=== PATIENT | female | born 1990 | race Caucasian/White ===

== ENCOUNTER 2018-04-05 15:10 | Outpatient (REF) | payer BC, SELFPAY ==
--- NOTE | 2018-04-05 11:40 | PAPFT_PTH ---
PATIENT: Zhang Granado LOC: [facility] U#:[id number] AGE/SX: 27/F ROOM: RE04/05/[address]: Digna Bolivar RN : 1990 BED: DIS: 04/05/2018 SPEC #: [id number] RECD: 04/05/18 17:58 STATUS: TABATHA REKervin #: [id number] ERIBERTO: 04/05/18 11:[address]: Digna Bolivar DEPT: [facility] Cytology RECD BY: Selina England ENTERED: 04/05/18 17:58 SP TYPE: PAPFT OTHR DR: Georgette Kaufman Tissues: 1 - CX/ENDOCX FOR PAP SMEARS Procedures: PAP THIN PREP/UVM Screening Comments: [id number] (CHLAMYDIA/GC)
[2018-04-08 14:09] LABS: Chlamydia Result Negative; GC Result Negative; Specimen Description SEE COMMENTS
== END 2018-04-05 15:30 ==
LOC: LBN 15:10
PROVIDERS: PCP Internal Medicine; Visit Provider Advanced Practice Midwife
DX: Z12.4 Encounter for screening for malignant neoplasm of cervix (principal); Z11.51 Encounter for screening for human papillomavirus (HPV); Z11.3 Encounter for screening for infections with a predominantly sexual mode of transmission
CPT/HCPCS: 87491; 87591; 88142

== ENCOUNTER 2018-12-03 08:49 | Outpatient (CLI) | payer BC, SELFPAY ==
[2018-12-03 09:54] LABS: HCG Quant, Pregnancy 49 mIU/mL (1-3)
[2018-12-03 20:38] LABS: Estradiol 219 pg/ml; Progesterone 27.4 ng/ml
== END 2018-12-03 09:09 ==
PROVIDERS: PCP Internal Medicine; Visit Provider Obstetrics & Gynecology
DX: Z32.01 Encounter for pregnancy test, result positive (principal)
CPT/HCPCS: 36415; 82670; 84144; 84702

== ENCOUNTER 2018-12-05 08:11 | Outpatient (CLI) | payer BC, SELFPAY ==
[2018-12-05 08:58] LABS: HCG Quant, Pregnancy 70 mIU/mL (1-3)
[2018-12-05 17:34] LABS: Estradiol 223 pg/ml; Progesterone 23.8 ng/ml
== END 2018-12-05 08:31 ==
PROVIDERS: PCP Internal Medicine; Visit Provider Obstetrics & Gynecology
DX: Z32.01 Encounter for pregnancy test, result positive (principal)
CPT/HCPCS: 36415; 82670; 84144; 84702

== ENCOUNTER 2018-12-07 09:08 | Outpatient (CLI) | payer BC, SELFPAY ==
[2018-12-07 09:51] LABS: HCG Quant, Pregnancy 92 mIU/mL (1-3)
== END 2018-12-07 09:28 ==
PROVIDERS: PCP Internal Medicine; Visit Provider Obstetrics & Gynecology
DX: Z32.01 Encounter for pregnancy test, result positive (principal)
CPT/HCPCS: 36415; 84702

== ENCOUNTER 2018-12-09 07:04 | Outpatient (CLI) | payer BC, SELFPAY ==
[2018-12-09 07:59] LABS: HCG Quant, Pregnancy 117 mIU/mL (1-3)
== END 2018-12-09 07:24 ==
PROVIDERS: Obstetrics & Gynecology; PCP Internal Medicine; Visit Provider Obstetrics & Gynecology
DX: Z32.01 Encounter for pregnancy test, result positive (principal)
CPT/HCPCS: 36415; 84702

== ENCOUNTER 2018-12-11 07:05 | Outpatient (CLI) | payer BC, SELFPAY ==
[2018-12-11 07:50] LABS: HCG Quant, Pregnancy 127 mIU/mL (1-3)
== END 2018-12-11 07:25 ==
PROVIDERS: PCP Internal Medicine; Visit Provider Obstetrics & Gynecology
DX: Z32.01 Encounter for pregnancy test, result positive (principal)
CPT/HCPCS: 36415; 84702

== ENCOUNTER 2018-12-16 07:05 | Outpatient (CLI) | payer BC, SELFPAY ==
[2018-12-16 08:11] LABS: HCG Quant, Pregnancy 19 mIU/mL (1-3)
[2018-12-16 18:23] LABS: Estradiol 156 pg/ml; Progesterone 26.1 ng/ml
== END 2018-12-16 07:25 ==
PROVIDERS: PCP Internal Medicine; Visit Provider Obstetrics & Gynecology
DX: Z32.01 Encounter for pregnancy test, result positive (principal)
CPT/HCPCS: 36415; 82670; 84144; 84702

== ENCOUNTER 2018-12-23 07:11 | Outpatient (CLI) | payer BC, SELFPAY ==
[2018-12-23 07:56] LABS: HCG Quant, Pregnancy 7 mIU/mL (1-3)
== END 2018-12-23 07:31 ==
PROVIDERS: PCP Internal Medicine; Visit Provider Obstetrics & Gynecology
DX: Z32.01 Encounter for pregnancy test, result positive (principal)
CPT/HCPCS: 36415; 84702

== ENCOUNTER 2018-12-30 07:03 | Outpatient (CLI) | payer BC, SELFPAY ==
[2018-12-30 07:38] LABS: HCG Quant, Pregnancy 1 mIU/mL (1-3)
== END 2018-12-30 07:23 ==
PROVIDERS: PCP Internal Medicine; Visit Provider Obstetrics & Gynecology
DX: Z32.01 Encounter for pregnancy test, result positive (principal)
CPT/HCPCS: 36415; 84702

== ENCOUNTER 2019-03-27 08:20 | Outpatient (CLI) | payer BC, SELFPAY ==
[2019-03-27 09:16] LABS: HCG Quant, Pregnancy 6 mIU/mL (1-3)
[2019-03-27 19:59] LABS: Progesterone 22.5 ng/mL (See Table)
[2019-03-28 09:15] LABS: Estradiol 88 pg/mL (See Note)
== END 2019-03-27 08:40 ==
PROVIDERS: PCP Internal Medicine; Visit Provider Obstetrics & Gynecology
DX: Z32.00 Encounter for pregnancy test, result unknown (principal)
CPT/HCPCS: 36415; 82670; 84144; 84702

== ENCOUNTER 2019-03-29 09:11 | Outpatient (CLI) | payer BC, SELFPAY ==
[2019-03-29 09:53] LABS: HCG Quant, Pregnancy 2 mIU/mL (1-3)
[2019-03-30 18:14] LABS: Progesterone 16.3 ng/mL (See Table)
[2019-04-03 15:27] LABS: Estradiol 125 pg/mL (See Note)
== END 2019-03-29 09:31 ==
PROVIDERS: PCP Internal Medicine; Visit Provider Obstetrics & Gynecology
DX: Z32.00 Encounter for pregnancy test, result unknown (principal)
CPT/HCPCS: 36415; 82670; 84144; 84702

== ENCOUNTER 2021-10-20 01:30 | Outpatient (CLI) | payer BC, SELFPAY ==
[2021-10-20 16:03] LABS: Abs Immature Grans 0.05 10^3/uL (0.0-0.06); Absolute Basophil Count 0.03 10^3/uL (0.0-0.2); Absolute Eosinophil Count 0.13 10^3/uL (0.0-0.7); Absolute Lymphocyte Count 1.77 10^3/uL (1.2-3.4); Absolute Monocyte Count 0.56 10^3/uL (0.1-0.8); Absolute Neutrophil Count 6.62 10^3/uL (1.2-6.7); Basophils % 0.3; Eosinophils % 1.4; Glucose,1 Hr (Glucola) 110 mg/dL (80-140); HCT 35.3 % (36.0-46.0); HGB 12.5 g/dL (11.2-15.7); Immature Grans % 0.5; Lymphocytes % 19.3; MCH 31.6 pg (27.0-33.0); MCHC 35.4 % (32.0-36.0); MCV 89 fL (80-95); MPV 9.5 fL (8.0-11.0); Monocytes % 6.1; Neutrophils % 72.4; Platelet Count 254 10^3/uL (130-400); RBC 3.96 10^6/uL (3.93-5.22); RDW 11.8 % (11.7-14.6); RDW-SD 37.6 fL; WBC 9.16 10^3/uL (4.4-10.8)
[2021-10-20 16:17] LABS: TSH (W/Ref FT4) 2.14 uIU/mL (0.36-3.74)
[2021-10-23 09:28] LABS: HIV-1/2 Ag & Ab Screen Negative (Negative)
[2021-10-24 11:39] LABS: Hepatitis C Ab w Rflx HCV PCR Negative (Negative)
[2021-10-24 12:18] LABS: Hepatitis B Surface Ag Negative (Negative)
[2021-10-24 12:36] LABS: Varicella IgG Antibody Positive (See Note)
[2021-10-24 12:49] LABS: Rubella IgG Ab (UVM) Positive (See Note)
[2021-10-24 21:56] LABS: Syphilis IgG w/Reflex Nonreactive (Nonreactive)
== END 2021-10-20 01:31 | disposition home or self-care (01) ==
LOC: LBO 01:30
PROVIDERS: PCP Internal Medicine; Visit Provider Advanced Practice Midwife
DX: O09.811 Supervision of pregnancy resulting from assisted reproductive technology, first trimester (principal); Z3A.10 10 weeks gestation of pregnancy
CPT/HCPCS: 36415; 82950; 86787; 86803; 86850; 86900; 86901; 87340; 87389; 84443; 85025; 86762; 86780

== ENCOUNTER 2021-11-23 21:00 | Outpatient (REF) | payer BC, SELFPAY ==
[2021-11-25 15:15] LABS: Chlamydia Result Negative (Negative); GC Result Negative (Negative)
== END 2021-11-23 21:01 | disposition home or self-care (01) ==
LOC: LBN 21:00
PROVIDERS: PCP Internal Medicine; Visit Provider Advanced Practice Midwife
DX: Z33.3 Pregnant state, gestational carrier (principal); Z3A.15 15 weeks gestation of pregnancy
CPT/HCPCS: 87491; 87591

== ENCOUNTER 2022-02-20 03:17 | Outpatient (CLI) | payer BC, SELFPAY ==
[2022-02-20 10:15] LABS: HCT 33.9 % (36.0-46.0); MCH 33.3 pg (27.0-33.0); MCHC 35.4 % (32.0-36.0); MCV 94 fL (80-95); MPV 9.1 fL (8.0-11.0); Platelet Count 238 10^3/uL (130-400); RDW 12.4 % (11.7-14.6); RDW-SD 42.8 fL; WBC 10.67 10^3/uL (4.4-10.8)
[2022-02-20 10:48] LABS: Glucose,1 Hr (Glucola) 95 mg/dL (80-140)
== END 2022-02-20 03:18 | disposition home or self-care (01) ==
LOC: LBO 03:17
PROVIDERS: PCP Internal Medicine; Visit Provider Advanced Practice Midwife
DX: Z33.3 Pregnant state, gestational carrier (principal); Z3A.28 28 weeks gestation of pregnancy
CPT/HCPCS: 36415; 82950; 85027

== ENCOUNTER 2022-03-20 02:37 | Outpatient (CLI) | payer BC, SELFPAY ==
--- NOTE | 2022-03-20 06:30 | DI.US_ITS ---
Exam(s) US OB HELENA WEIGHT EXAM: US OB HELENA WEIGHT CLINICAL HISTORY: growth and HELENA,H/O COVID,U07.1,o98.512. TECHNIQUE: Transabdominal obstetrical ultrasound performed. COMPARISON: None FINDINGS:: Number of fetuses: One. position: Vertex. Placental location: Posterior. No evidence of previa. BIOMETRIC DATA: BPD: 80mm = 32+1 weeks HC: 304mm = 33+ 6 weeks AC: 300mm = 34 weeks FL: 64 mm = 33+1 weeks EFW: 2218 Gms = 75% Composite Age: 30 3+2 weeks EDC: 06 May 2022 Heart Rate: 133BPM Amniotic fluid index: 13.6 cm. Amount of fluid is visually within normal limits. IMPRESSION: size and weight are within the expected range. DATA REPOSITORY:
== END 2022-03-20 02:57 ==
LOC: DI 02:37
PROVIDERS: PCP Internal Medicine; Visit Provider Advanced Practice Midwife
DX: O98.512 Other viral diseases complicating pregnancy, second trimester (principal); U07.1 COVID-19
CPT/HCPCS: 76816

== ENCOUNTER 2022-04-17 15:24 | Outpatient (REF) | payer BC, SELFPAY | END 2022-04-17 15:25 | disposition home or self-care (01) | LOC: LBN 15:24 | PROVIDERS: PCP Internal Medicine; Visit Provider Advanced Practice Midwife | DX: Z33.3 Pregnant state, gestational carrier (principal) | CPT/HCPCS: 87081 ==

== ENCOUNTER 2022-05-01 10:23 | Outpatient (CLI) | payer BC, SELFPAY ==
[2022-05-01 10:34] VITALS: BP 122/76; PULSE 69
[2022-05-01 10:38] VITALS: BP 122/76; PULSE 95; TEMP 37
[2022-05-01 11:10] VITALS: BP 122/76; PULSE 95; TEMP 37
--- NOTE | 2022-05-01 11:10 | W.OBNST ---
Date of service: 05/01/22 Time of Service: 11:10 NST Evaluation Reason for NST Reasons for Nonstress Test: OTHER, SEE COMMENT Reason for NST Other: IVF Gestational Age Gestational Age in Weeks and Days: 38 Weeks and 3Days Test and Monitor Explained Test/Monitor Explained: Test Explained, Monitor Explained and Patient Verbalized Understanding Vital Signs Blood Pressure: 122/76 Pulse: 95 Temperature: 98.6 F NST Information Date on Monitor: 05/01/22 Time on Monitor: 10:10 Date off Monitor: 05/01/22 Time off Monitor: 10:34 Total Time on Monitor: 24 NST Interventions: PO Hydration Contraction Frequency: 5-14 NST Evaluation Patient States Movement: Present FHR Baseline: 125 Variability: Moderate 6-25 bpm Accelerations: 15x15 Decelerations: None NST Results: Reactive Note N/A NST Note Note: NST today due to IVF and gestational carrier. Reactive NST NST Reviewed and Verified by: Nadine Blakely
== END 2022-05-01 10:40 | disposition home or self-care (01) ==
LOC: BCD 10:25 → OBS 10:28
PROVIDERS: PCP Internal Medicine; Visit Provider Advanced Practice Midwife
DX: O09.813 Supervision of pregnancy resulting from assisted reproductive technology, third trimester (principal); Z33.3 Pregnant state, gestational carrier; Z3A.38 38 weeks gestation of pregnancy
CPT/HCPCS: 59025

== ENCOUNTER 2022-05-08 06:48 | Outpatient (CLI) | payer BC, SELFPAY ==
[2022-05-08 09:50] VITALS: BP 117/75; PULSE 62; TEMP 36.6
[2022-05-08 10:03] VITALS: BP 117/75; PULSE 62
[2022-05-08 11:38] VITALS: BP 117/75; PULSE 62; TEMP 36.6
--- NOTE | 2022-05-08 11:38 | W.OBNST ---
Date of service: 05/08/22 Time of Service: 11:38 NST Evaluation Reason for NST Reasons for Nonstress Test: OTHER, SEE COMMENT Reason for NST Other: IVF Gestational Age Gestational Age in Weeks and Days: 39 Weeks and 3Days Test and Monitor Explained Test/Monitor Explained: Test Explained, Monitor Explained and Patient Verbalized Understanding Vital Signs Blood Pressure: 117/75 Pulse: 62 Temperature: 97.9 F NST Information Date on Monitor: 05/08/22 Time on Monitor: 09:51 Date off Monitor: 05/08/22 NST Interventions: PO Hydration NST Evaluation Patient States Movement: Present FHR Baseline: 125 Variability: Moderate 6-25 bpm Accelerations: 15x15 Decelerations: None NST Results: Reactive Note N/A NST Note NST Reviewed and Verified by: Corie Farrell
== END 2022-05-08 10:17 | disposition home or self-care (01) ==
LOC: BCD 06:54 → OBS 09:43
PROVIDERS: PCP Internal Medicine; Visit Provider Advanced Practice Midwife
DX: O09.813 Supervision of pregnancy resulting from assisted reproductive technology, third trimester (principal); Z3A.39 39 weeks gestation of pregnancy
CPT/HCPCS: 59025

== ENCOUNTER 2022-05-15 10:09 | Outpatient (CLI) | payer BC, SELFPAY ==
[2022-05-15 10:47] VITALS: BP 129/79; PULSE 60; TEMP 36.8
[2022-05-15 11:17] VITALS: BP 141/105; PULSE 100
[2022-05-15 11:18] VITALS: BP 129/79; PULSE 60
[2022-05-15 11:18] LABS: HCT 38.4 % (36.0-46.0); HGB 13.2 g/dL (11.2-15.7); MCH 31.7 pg (27.0-33.0); MCHC 34.4 % (32.0-36.0); MCV 92 fL (80-95); MPV 9.8 fL (8.0-11.0); Platelet Count 270 10^3/uL (130-400); RBC 4.16 10^6/uL (3.93-5.22); RDW 12.3 % (11.7-14.6); RDW-SD 41.1 fL; WBC 10.77 10^3/uL (4.4-10.8)
--- NOTE | 2022-05-15 11:43 | PDOC.NST_ITS ---
Date of service: 05/15/22 Time of Service: 10:25 NST Evaluation Reason for NST Reasons for Nonstress Test: OTHER, SEE COMMENT Reason for NST Other: IVF Gestational Age Gestational Age in Weeks and Days: 40 Weeks and 3Days Test and Monitor Explained Test/Monitor Explained: Test Explained, Monitor Explained and Patient Verbalized Understanding Vital Signs Blood Pressure: 129/79 Pulse: 60 Temperature: 98.2 F Urine Results Urine Protein: Negative (done in [facility] prior to arriving) Urine Ketones: Negative Urine Glucose: Negative Urine Blood: Negative NST Information Date on Monitor: 05/15/22 Time on Monitor: 10:18 Date off Monitor: 05/15/22 Time off Monitor: 10:40 Total Time on Monitor: 22 NST Interventions: PO Hydration Contraction Frequency: None noted NST Evaluation Patient States Movement: Present FHR Baseline: 135 Variability: Moderate 6-25 bpm Accelerations: 15x15 Decelerations: None NST Results: Reactive Note Presentation Presentation Results: breech with back down, transverse Coding for Presentation w/NST: Completed Exam NST Note Note: NST done due to Gestational Carrier. baby is breech today with back down, head to maternal right. Dr. Alfred and I reviewed with Zhang and Georgette (baby's mother) use of ECV for turning baby and allowing for induction of labor if baby turns cephalic. Risks and benefits were reviewed and they both prefer to attempt ECV and if not successful understand that C/S would be encouraged. If it is successful they agree to induction of labor after ECV. Dr. Alfred will organize ECV with OR for tomorrow morning at 0730 and patient will arrive at 0630 for IV start and terbutaline prior to procedure. Denies questions. labs for admission tomorrow are obtained prior to patient leaving NST Reviewed and Verified by: Nadine Liriano
[2022-05-15 11:47] VITALS: BP 129/79; PULSE 60; TEMP 36.8
[2022-05-15 12:15] LABS: Source Nasal/Nares
[2022-05-15 12:50] LABS: COVID-19 PCR Negative (Negative)
== END 2022-05-15 11:45 | disposition home or self-care (01) ==
LOC: BCD 10:10 → OBS 10:10
PROVIDERS: PCP Internal Medicine; Visit Provider Advanced Practice Midwife
DX: O32.1XX0 Maternal care for breech presentation, not applicable or unspecified (principal); Z33.3 Pregnant state, gestational carrier; Z3A.40 40 weeks gestation of pregnancy
CPT/HCPCS: 59025; 36415; 85027; 86850; 86900; 86901; 87635

== ENCOUNTER 2022-05-15 20:15 | Inpatient (IN) | payer BC, SELFPAY ==
--- NOTE | 2022-05-15 19:51 | W.POCUS ---
Pocus Exam Limited OB Exam DATE OF EXAM:: 05/15/22 TIME OF EXAM:: 19:40 PROVIDER THAT PERFORMED THE STUDY: Nadine Liriano IS THIS A REPEAT EXAM DURING THIS ENCOUNTER: No Type of Exam: Pelvic OB Trans Abdominal REASON FOR EXAM: other indication: presentation VISUALIZED STRUCTURES: Other structure: VTX presentation of fetus verified PERTINENT FINDINGS/IMPRESSION: poll (VTX presentation) Exam Complete. DIFFERENTAL DIAGNOSES: US done as patient felt baby might have moved into cephalic presentation this evening at home. Was scheduled for ECV for breech tomorrow am. VTX presentation verified and abdominal binder was placed to hold try to hold baby in this position. FHR visible 130. KH
--- NOTE | 2022-05-15 19:53 | NUR.NOTE ---
Stacy Liriano CNM at bedside for u/s to confirm position. Nursing Note:
--- NOTE | 2022-05-15 20:18 | HPE_ITS ---
Date of service: 05/15/22 Time of Service: 20:18 Assessment and Plan Assessment and plan (1) Unstable lie: Status: Acute Assessment and plan: 1. admission for induction of labor as baby has spontaneously turned to cephalic presentation at this time and patient is currently 40w3d 2. VE rodriguez 5 (1/40%/-2/mid/medium consistency) plan misoprostol cervical ripening, risks, benefits, associated procedures and potential side effects reviewed, patient and Mother of baby as patient is gestational carrier both agree to this plan. 3. Consult with Dr. Alfred done who agrees as well to plan of care. 4. POCUS exam done to confirm cephalic, VTX presentation. ROP at this time. see separate note. 5. Has already had CBC, type and screen and COVID swab done and all are WNL 6. Plan IV access due to recent unstable lie, Misoprostol 50 mcg PO and reassess in 2-4 hours or prn. 7. Abdominal binder was placed to try to help maintain position. OB-HPI Labor/Delivery History of Present Illness Reason for Visit: COVID.Pre procedure/operative Chief Complaint: Other (induction of labor, there has been unstable lie but at this time baby is cephalic and patient prefers induction at this time as well. Dr. Alfred agrees to plan to start cervical ripening. KH). HENNA Calculator Estimated Delivery Date Method Current WG Current Estimate 05/12/22 Ultrasound #1 40w 3d Comments: Zhang was seen in office on 05/15/22 and presenting part of fetus was breech at that time, confirmed by US. Dr. Alfred had been consulted and discussed doing ECV in morning of 05/16/22 and then IOL. Zhang is a gestational carrier for Gyp sy Michael. They both agreed to this plan. In the evening of 05/15/22 Zhang had paged CNM stating that she was certain baby was head down and wondered it it would be beneficial to do US and confirm this and put abdominal binder on that was discussed earlier in the day as well as consider starting induction this evening. POCUS done this evening shows that baby is cephalic. VE done 1/40/-2 mid position and medium consistency. Switchboard Installer consulted with Dr. lAfred who agrees that moving forward with this plan is preferred at this time. Risks, benefits and alternatives to induction of labor and cervical ripening were reviewed with the patient, the mother of the baby (Georgette) and gestational carrier's (Diantha) , (Selvin). They all prefer and agree to move forward with admission at this time for cervical ripening and induction of labor. KH History of Present Expected Delivery Route/Plan - CNChava Baby's mother - Georgette Rodriguez BG support- Selvin, Georgette and Chante (communication studies professor)=support team, desires tub room GBS negative Specific Issues/Plan 1. Gestational carrier: donor egg & donor sperm; baby's mother will attend visits AMAP 2. Hx macrosomia, early [id number] 3. Accepts level 2 scan and [facility] [place] MFM consult for IVF 3a. Normal anatomy scan, NST weekly at 36 weeks recommended due to IVF 3b. Begun as of 38 wks, on Mondays. MFM consult does not mention IOL. 4. Is COVID vaccinated and boosted 5. Genetics were done on embryo=nml, pt & mother undecided about AFP at 16-20 wks 6. PAP current, due 7. Hx PCN allergy in childhood, accepts [facility] [place] Allergy referral for testing 8. COVID+ at 13 wks, mild illness. Plan growth scan @ 32 wks scheduled- ASA daily. Assessment: History Reviewed & Current Informed Consent Informed Consent: Induction of Labor and Risk,Benefits,Alternatives Discussed Review of Systems All systems reviewed & are unremarkable except as noted in HPI and below PFSH All Active Problems (Updated 05/15/22 @ 20:35 by Nadine Liriano CNM) Unstable lie (Acute) Evaluate position using ultrasound (Acute) COVID-19 affecting in second trimester (Acute) COVID+ at 13 wks, mild sx Allergy history, penicillin (Acute) state, gestational carrier (Acute) conceived through in vitro fertilization (Acute) Medical History (Updated 05/15/22 @ 20:35 by Nadine Liriano CNM) Encounter for screening for other viral diseases Fatigue Mastitis Transverse lie of fetus Surgical History right foot surgery in high school Social History Smoking/Tobacco Use Status: Never Smoking risk assessment performed?: Yes Alcohol Intake: former Drug use: Never Substance use type: does not use Do you feel safe at home: Yes Do you feel safe in your relationship?: Yes History History 7 Para 2 Hx # Term Pregnancies 2 Multiple births 0 Hx # Pregnancies 0 Ectopic pregnancies 0 AB induced 0 Hx Number of Living Children 2 AB spontaneous 4 Past Pregnancies Del. Date GA/Weeks # Preg Succ Route Wgt Sex Labor Lgth Anesth esia Location Prov Complic 12/07/14 40 No Yes vaginal 7 lb 14 oz Female 8 hr [facility] 06/10/17 40 No Yes vaginal 9 lb 2 oz Male 5 hrs [facility] Delivery Date: 12/07/14 Last Updated by: Corie Farrell Used hypnobirthing, nml , CNM attended [facility] Delivery Date: 06/10/17 Last Updated by: Corie Farrell Waterbirth, no problems, Pablo Meds Allergies and Home Medications Allergies Allergy/AdvReac Type Severity Reaction Status Date / Time amoxicillin Allergy Mild Skin Rash Verified 05/15/22 20:30 Home Medications Medication Instructions Recorded Confirmed Type calcium carbonate 500 mg calcium 500 mg PO Q6H PRN 10/20/21 05/15/22 History (1,250 mg) tablet prenat.vits,priyank,cdx-wnub-riaxa 1 tab PO DAILY 10/20/21 05/15/22 History magnesium 250 mg tablet 500 mg PO DAILY 11/23/21 05/15/22 History aspirin 81 mg tablet,delayed 81 mg PO DAILY 12/26/21 05/15/22 History release (Adult Aspirin Regimen) riboflavin (vitamin B2) 100 mg 200 mg PO DAILY 12/26/21 05/15/22 History tablet Exam Physical Exam Vital Signs Reviewed: Yes Constitutional Constitutional: no acute distress Detailed Labor and Delivery Exam Dilation: 1 Effacement (%): 40 station: -2 Position: ROP Cervix position: mid Consistency: medium Rodriguez Score: Cervical Points Exam 0 1 2 3 Dilation Closed 1-2cm 3-4 cm 5-6cm Effacement 0-30% 40-50% 60-70% 80% Consistency Firm Medium Soft Station -3 -2 -1,0 +1,+2 Position Posterior Mid Anterior RODRIGUEZ Score(Cervical Ripeness Score): 5 Amniotic Membrane Status: Intact Contraction Frequency(min): irregular Contraction Duration(sec): irregular Contraction Intensity: Mild Fetus A Heart Rate Baseline: 140 Monitor Accelerations: 15 X 15 Monitor Decelerations: None Variability: Moderate (6-25 BPM) Categories: Category I Est. Weight: 8 lb 8 oz HEENT Exam HEENT Exam: Normal Neck Exam Neck Exam: Normal (visual exam) Chest/Brest/Axilla Exam Chest Exam: Not Done Breast Exam Breast Exam: Not Done Respiratory Exam Respiratory Exam: Normal Cardiovascular Exam Cardiovascular Exam: Normal Abdominal Exam Abdominal Exam: Normal Rectal Exam Rectal Exam: Not Done Exam Exam: Normal Extremities Exam Extremities Exam: Normal Back/Spine/Pelvis Exam Back Exam: Normal Pelvis Adequate: Yes Skin Exam Skin Exam: Normal Neurological Exam Neurological Exam: Normal Psychiatric Exam Psychiatric Exam: Normal Results Results Group Beta Strep: Negative Blood Type: O+ Rubella Status: Immune Varicella Immunity: Immune Risk Assessment Risk for Shoulder Dystocia Historical/Initial OB: POSITIVE FOR: Previous Macrosomia; NEGATIVE FOR: Pelvic Abnormality, Pre- BMI>30 or Previous Shoulder Dystocia 40 Weeks: NEGATIVE FOR: EFW> 4500 gms, Maternal Weight Gain >40lb or Post Dates Delivery Plan @ 36wks: spont labor, Delivery Plan @ 40 wks: induction of labor at 40w3d due to current VTX presentat ion following unstable lie on 05/15/22 Risk for Pre-Eclampsia Date Initiated/Initials: not indicated. jk Yes, if one or more: NEGATIVE FOR: Hx Pre-E/Gest HTN, Chronic HTN, Multiple Gestation, Pre-gestational DM, Renal Disease, Systemic Lupus or APA Syndrome Yes, if 2 or more: NEGATIVE FOR: Nulliparity, Age>= 35 yrs, >10yr btwn pregnancies, BMI>30, ethinicty, Mother/Sister w/ Pre-E or Previous IUGR Risk for Post- Hemorrhage Initial: NEGATIVE FOR: Multiple Gestation, Previous PPH, Known Clotting Deficiency, Grand Multiparity or Anticoagulation At Risk?: Yes (some increased risk due to induction of labor and history of macrosomia) Counseled re: Active Management: Yes Risks Reviewed Risks Reviewed Upon Admission: Yes
[2022-05-15 20:44] VITALS: BP 119/71; PULSE 55
[2022-05-15 20:46] VITALS: BP 119/71; PULSE 55; RESP 18; TEMP 36.6
[2022-05-15] MEDS: miSOPROStol 25 MCG TAB 50 MCG PO (21:40)
[2022-05-15 21:45] VITALS: BP 119/71; PULSE 55; RESP 18; TEMP 36.6
[2022-05-15] MEDS: Normal Saline Flush 10 ML SYR IVP (22:15)
--- NOTE | 2022-05-15 23:34 | W.PM.OBNL1 ---
Date of service: 05/15/22 Time of Service: 23:34 Informed Consent Informed Consent: Induction of Labor and Risk,Benefits,Alternatives Discussed Contractions Monitor Mode: External Contraction Frequency(min): 3-5 Contraction Duration(sec): 40-60 Intensity: Mild Fetus A Monitor: Novii Heart Rate Baseline: 120 Variability: Moderate (6-25 BPM) Categories: Category I Accelerations: 15 X 15 Decelerations: None Assessment and Plan Assessment and plan (1) Encounter for induction of labor: Status: Acute Assessment and plan: 1. Will repeat misoprostol at 0140 unless contraindicated by patient or status 2. Reassess in 2 hours or prn. KENTRELL Objective Temp Pulse Resp BP 97.8 F 55 L 18 119/71 05/15/22 21:45 05/15/22 21:45 05/15/22 21:45 05/15/22 21:45 Vital Signs Reviewed: Yes Subjective Interval history since last seen: observed sleeping, left undisturbed. KENTRELL
[2022-05-16] VITALS (21 sets, daily range): BP systolic 102–132; BP diastolic 59–80; PULSE 56–113; RESP 16–18; TEMP 36.4–37.1; O2SAT 100; BMI 28.5
--- NOTE | 2022-05-16 03:15 | NUR.NOTE ---
Nursing Note: Stacy Liriano at bedside, advise to continue to monitor and hold off on repeat dose of miso at this time. Pt on birthing ball, denies any needs at this time.
--- NOTE | 2022-05-16 04:08 | W.PM.OBNL1 ---
Date of service: 05/16/22 Time of Service: 04:08 Informed Consent Informed Consent: Induction of Labor and Risk,Benefits,Alternatives Discussed Pelvic Exam Comments: deferred at this time Contractions Monitor Mode: External Contraction Frequency(min): 2-5 Contraction Duration(sec): 40-60 Intensity: Moderate/Strong Fetus A Monitor: Novii Heart Rate Baseline: 115 Presentation: Cephalic Variability: Moderate (6-25 BPM) Categories: Category I Accelerations: 15 X 15 Decelerations: None Assessment and Plan Assessment and plan (1) Encounter for induction of labor: Status: Acute Assessment and plan: 1. Contractions are remaining 5 in 10 and increased in intensity 2. Continue present managment and reassess in 1-2 hours. 3. Baby remains cephalic at this time, will repeat US assessment this morning to document cephalic presentation persists. 4. Expect NVD. PFEIFFER Objective Temp Pulse Resp BP 97.7 F 65 16 119/71 05/16/22 02:05 05/16/22 02:05 05/16/22 02:05 05/16/22 02:05 Vital Signs Reviewed: Yes Subjective Interval history since last seen: Contractions are stronger per patient and per palpation but slightly irregular in timing. She is working well with the contractions using birthing ball and mat on floor. Binder is off at this time for patient comfort. Baby has remained cephalic by jakob PFEIFFER
--- NOTE | 2022-05-16 04:21 | NUR.NOTE ---
Nursing Note: Stacy Liriano at bedside to discuss plan of care. Will continue to monitor per protocal. Stacy Liriano CNM will reassess in one hour.
[2022-05-16] MEDS: miSOPROStol 25 MCG TAB SL (05:56)
--- NOTE | 2022-05-16 07:32 | W.PM.OBNL1 ---
Date of service: 05/16/22 Time of Service: 07:30 Informed Consent Informed Consent: Induction of Labor and Risk,Benefits,Alternatives Discussed Pelvic Exam Comments: deferred Contractions Monitor Mode: External Contraction Frequency(min): 1-5 Contraction Duration(sec): 40-80 Intensity: Moderate/Strong Fetus A Monitor: Novii Heart Rate Baseline: 115 Presentation: Cephalic Variability: Moderate (6-25 BPM) Categories: Category I Accelerations: 15 X 15 Decelerations: None Assessment and Plan Assessment and plan (1) Encounter for induction of labor: Status: Acute Assessment and plan: 1. second dose of misoprostol approximately 2 hours ago of 25 mcg SL given 2. Contractions have picked up in intensity and frequency again since that time 3. POCUS exam done again this am to confirm VTX presentation. 4. Continue present management, expect NVD. KENTRELL Objective Temp Pulse Resp BP 97.6 F 70 16 119/76 05/16/22 05:58 05/16/22 05:58 05/16/22 02:05 05/16/22 05:58 Vital Signs Reviewed: Yes Subjective Interval history since last seen: Zhang is noting increased discomfort in contractions and has had some bloody show. She is reporting more lower pelvic pressure. POCUS done to confirm vertex presentation. KENTRELL Pocus Exam Limited OB Exam DATE OF EXAM:: 05/16/22 TIME OF EXAM:: 07:30 PROVIDER THAT PERFORMED THE STUDY: Nadine Liriano IS THIS A REPEAT EXAM DURING THIS ENCOUNTER: Yes, Provider: Same provider Type of Exam: Pelvic OB Trans Abdominal REASON FOR EXAM: other ( presentation) indication: presentation Exam Complete. DIFFERENTAL DIAGNOSES: cephalic presentation VS breech due to recent unstable lie Cephalic presentation confirmed at this time. KENTRELL
--- NOTE | 2022-05-16 09:37 | NUR.NOTE ---
Pt in tub. temp 100 degrees FNursing Note:
--- NOTE | 2022-05-16 10:14 | PGE_ITS ---
Date of service: 05/16/22 Time of Service: 10:14 Informed Consent Informed Consent: Induction of Labor and Risk,Benefits,Alternatives Discussed Pelvic Exam Comments: deferred Contractions Monitor Mode: Palpation Contraction Frequency(min): 1-3 Contraction Duration(sec): 40-60 Intensity: Strong Fetus A Monitor: Doppler Heart Rate Baseline: 120 Assessment and Plan Assessment and plan (1) Encounter for induction of labor: Status: Acute Assessment and plan: 1. SROM at 0845 clear fluid 2. Zhang is in the tub working well with contractions and is planning tub 3. Will leave baby skin to skin with Zhang in tub for delayed cord clamping and then when Gilbert cuts cord we will have her take her baby for skin to skin and all other care. 4. Expect NVD. KH Objective Temp Pulse Resp BP 97.6 F 70 16 119/76 05/16/22 05:58 05/16/22 05:58 05/16/22 02:05 05/16/22 05:58 Vital Signs Reviewed: Yes Subjective Interval history since last seen: Zhang is in the tub. She is having regular contractions and some vaginal pressure. SROM occurred at 0845 for clear fluid.
[2022-05-16] MEDS: Normal Saline Flush 10 ML SYR IVP (10:58)
--- NOTE | 2022-05-16 13:52 | ANES.PREOP_ITS ---
General Info Date of Service Date Performed: 05/16/22 Height: 5 ft 10 in Weight: 90.265 kg Body Mass Index (BMI): 28.5 Meds Allergies and Home Medications Allergies Allergy/AdvReac Type Severity Reaction Status Date / Time amoxicillin Allergy Mild Skin Rash Verified 05/15/22 20:30 Home Medication Medication Instructions Recorded calcium carbonate 500 mg calcium 500 mg PO Q6H PRN 10/20/21 (1,250 mg) tablet prenat.vits,priyank,yhk-comp-lcqlj 1 tab PO DAILY 10/20/21 magnesium 250 mg tablet 500 mg PO DAILY 11/23/21 aspirin 81 mg tablet,delayed 81 mg PO DAILY 12/26/21 release (Adult Aspirin Regimen) riboflavin (vitamin B2) 100 mg 200 mg PO DAILY 12/26/21 tablet Current Visit Medications: Current Medications Generic Name Dose Route Start Last Admin Trade Name Freq PRN Reason Stop Dose Admin Ringer's Solution 1,000 mls @ 200 mls/hr 05/15/22 20:15 IV INFUSION EKATERINA Sodium Chloride 500 mls @ 0 mls/hr 05/15/22 20:15 Saline 500ml Bag IV PRN PRN As Directed IV Miscellaneous Supplies 1 each 05/15/22 20:15 Iv Access IV DIRECTED EKATERINA Sodium Chloride 0 ml 05/15/22 20:15 05/16/22 10:58 Normal Saline Flush 10 Ml Syr IVP 10 ml PRN PRN Administration Terbutaline Sulfate 0.25 mg 05/15/22 20:15 Terbutaline 1 Mg/Ml Vial SC PRN PRN PFSH Active Problems Active Problems: Problem Status Onset Code Encounter for induction of labor Z34.90 Unstable lie O32.0XX0 Evaluate position using ultrasound Z36.89 COVID-19 affecting in second trimester O98.512, U07.1 Allergy history, penicillin Z88.0 state, gestational carrier Z33.3 conceived through in vitro fertilization O09.819 Medical History Medical History (Updated 05/15/22 @ 23:36 by Nadine Liriano CNM) Encounter for screening for other viral diseases Fatigue Mastitis Transverse lie of fetus Surgical History Surgical History right foot surgery in high school Tobacco Smoking/Tobacco Use Status: Never Alcohol Alcohol Intake: former Substance Use Substance use: Never Substance use type: does not use Prental History History 7 Para 2 Hx # Term Pregnancies 2 Multiple births 0 Hx # Pregnancies 0 Ectopic pregnancies 0 AB induced 0 Hx Number of Living Children 2 AB spontaneous 4 Past Pregnancies Del. Date GA/Weeks # Preg Succ Route Wgt Sex Labor Lgth Anesth esia Location [facility] 12/07/14 40 No Yes vaginal 3572.04 g Female 8 hr Hosp [facility] in [facility] 06/10/17 40 No Yes vaginal 4139.03 g Male 5 hrs [facility] D. Dulude CNM Delivery Date: 12/07/14 Last Updated by: Corie Farrell Used hypnobirthing, nml , CNM attended [facility] Delivery Date: 06/10/17 Last Updated by: Corie Farrell Waterbirth, no problems, Pablo Vital Signs and Lab Results Vital Signs Most Recent Vital Signs in EMR: Most Recent Vital Signs Temp Pulse Resp BP 36.5 C 57 L 18 121/59 L 05/16/22 13:21 05/16/22 13:21 05/16/22 10:52 05/16/22 13:21 Lab Results Blood Type / Crossmatch: Patient ABO/Rh O Positive 05/15/22 Antibody Screen NEGATIVE 05/15/22 Complete Blood Count: White Blood Count 10.77 10^3/uL (4.4-10.8) 05/15/22 11:10 Red Blood Count 4.16 10^6/uL (3.93-5.22) 05/15/22 11:10 Hemoglobin 13.2 g/dL (11.2-15.7) 05/15/22 11:10 Hematocrit 38.4 % (36.0-46.0) 05/15/22 11:10 Platelet Count 270 10^3/uL (130-400) 05/15/22 11:10 Complete Metabolic Panel: No Data to Display Liver Function Panel: No Data to Display Coagulation Panel: No Data to Display Cardiac Panel: No Data to Display Arterial Blood Gas: No Data to Display Venous Blood Gas: No Data to Display Pancreas Panel: No Data to Display Thyroid Panel: No Data to Display Infectious Disease: Coronavirus (COVID-19)(PCR) Negative (Negative) 05/15/22 11:00 Coronavirus 2019 Source Nasal/Nares 05/15/22 11:00 Blood Cultures: No Data to Display Toxicology Panel: No Data to Display Panel: No Data to Display Anesthesia Assessment and Plan Anesthesia History Personal History: No History of Anesthesia Complications Family History: No Family History of Anesthesia Complications Exercise Tolerance Exercise Tolerance: Metabolic Equivalents>4 Cardiac & Pulmonary Exam Cardiac Exam: Normal S1/S2 Heart Sounds Pulmonary Exam: Clear Bilateral Breath Sounds Implantable Cardiac Device Does patient have a Pacemaker or an ICD?: No Airway Exam Known Difficult Airway: No Mallampati Class: 2 Mouth Opening: Normal (> 3cm) Thyromental Distance: Greater than 3 cm Neck Range of Motion: Full ROM Neck Circumference: Normal Teeth Condition: Normal Dentition ASA Classification ASA Score: ASA 1 Emergency Case?: No NPO Status NPO Status: Full Stomach Status Status: Confirmed Anesthesia Plan Resuscitation Status: Full Code Anesthesia Technique: Epidural Anesthesia Airway Planned: Natural Airway Pain Management: Epidural Monitors Used: Standard Monitors Preoperative Comments:: 31 yo female for induction of labor requesting epidural for pain control. Currently 9.5 cm. Sig PMHx: never smoker, denies major. Plt: 270 Discussed intrathecal vs epidural with nurse midwife and pt, plan for epidural.
[2022-05-16] MEDS: FentaNYL/ROPIvacaine 2 mcg/ml and 0.1% 200 ML CADD Cassette EP (14:16)
--- NOTE | 2022-05-16 14:44 | W.ANESNEU ---
Epidural/Spinal Catheter Date Performed: 05/16/22 Procedure Start: 14:05 Procedure Stop: 14:15 Requesting Provider: Nadine Liriano Procedure Location: Obstetrics Reason Performed: Labor Epidural Standard Monitors Applied: Blood Pressure and SpO2 Patient Position: Sitting Sedation Given (Indicate Dose Given): No Sedation given Patient Mental Status: Awake Sterility: Hand Hygiene, Surgical Cap, Surgical Mask, Sterile Gloves, Sterile Drape/Sheet and Chlorhexidine Procedure Location: L2-L3 Interspace Epidural Needle: Tuohy 17 Guage Needle Length: 3.5 Inch Needle Approach: Midline Epidural Procedure: 1% Lidocaine to skin and subcutaneous tissue with 25G needle, MALINA to Saline Used and Epidural Catheter Placed (wire reinforced. ) Catheter Placed?: Catheter Placed Test Dose (Indicate Dose Given): 3ml 1.5% Lidocaine with 1:200K Epinephrine Given Loss of Resistance Depth (cm): 5 Catheter depth at skin (cm): 9 Dressing: Sorbaview Dressing Placed and Mastisol Used Epidural Provider Bolus (Indicate Dose Given): Total Ropivacaine 0.1% with Fentanyl 2mcg/ml Given from pump. (ml) (5 mL + 5 mL) Dose:: 10 mL Additives (Indicate Dose Given ): None Infusion Medication: Medication Infusion Began Medication Infusion: Ropivacaine 0.1% with Fentanyl 2mcg/ml Maintenance Infusion Rate (ml/hour): 10 PCEA Bolus Dose (ml): 5 Block Level: N/A Paresthesia: None Ultrasound: Used to marko site Number of Attempts (See previous attempts in note section): 1 Procedure Tolerated: No Complications Procedure Outcome: Successful Procedure Comment:: Negative test dose. After supine and getting ready to do loading dose, baby HR down, CNM in, epidural loaded gently loaded in coordination with CNM. 10 mL loaded (5+5 mL), minimal effect, pt currently pushing. Performed By: Josh Mauro
--- NOTE | 2022-05-16 15:01 | W.PM.OBNL1 ---
Date of service: 05/16/22 Time of Service: 11:35 Informed Consent Informed Consent: Induction of Labor and Risk,Benefits,Alternatives Discussed Pelvic Exam Comments: pushing involuntarily in tub Contractions Monitor Mode: Palpation Contraction Frequency(min): 2-4 Contraction Duration(sec): 60 Intensity: Moderate/Strong Fetus A Monitor: Doppler Heart Rate Baseline: 120 Assessment and Plan Assessment and plan (1) Encounter for induction of labor: Status: Acute Assessment and plan: 1. continue present management and expect LISAD. KENTRELL Objective Temp Pulse Resp BP Pulse Ox 97.7 F 56 L 18 117/70 100 05/16/22 13:21 05/16/22 14:25 05/16/22 10:52 05/16/22 14:25 05/16/22 14:24 Subjective Interval history since last seen: Involuntary urge to push while in tub, + show. Will allow for pushing and reassess prn. KENTRELL
--- NOTE | 2022-05-16 15:04 | W.PM.OBNL1 ---
Date of service: 05/16/22 Time of Service: 14:00 Informed Consent Informed Consent: Induction of Labor and Risk,Benefits,Alternatives Discussed Assessment and Plan Assessment and plan (1) Encounter for induction of labor: Status: Acute Assessment and plan: 1. Epidural for pain control as patient is unable to tolerate reduction of anterior cervical lip and then expect NVD. 2. Dr. Rockwell aware of plan and agrees to plan.KH Objective Temp Pulse Resp BP Pulse Ox 97.7 F 56 L 18 117/70 100 05/16/22 13:21 05/16/22 14:25 05/16/22 10:52 05/16/22 14:25 05/16/22 14:24 Subjective Interval history since last seen: Zhang got out of tub to bed and was noted to have thick anterior lip that could be reduced but she was unable to tolerate procedure. She agreed to trying nitrous and see if we could reduce lip. After trying to get nitrous to work well for her she choose epidural as cervix would not move back and she was very tired. Major Assembly Inspector reviewed this plan of epidural for pain control, pitocin if indicated and then expect NVD with Dr. Rockwell who agreed to plan.
--- NOTE | 2022-05-16 15:09 | OBVDS_ITS ---
Date of service: 05/16/22 Time of Service: 15:09 OB Labor/ Delivery Information Baby A Delivery Delivery Method: Spontaneaous Presentation: Cephalic Cephalic Position: Vertex Vertex Position: Right Occipital Anterior Cord Description-Baby A: 3 Vessels, Nuchal Cord (X 1 loose, reduced prior to shoulders delivering) and Clamped/Cut Amniotic Fluid: Clear Estimated Blood Loss: 350 Delivery Outcome: Liveborn Infant Complications: terminal bradycardia but resolve immediately before . Pediatrics and Dr. Rockwell called to attend. Dr. Rockwell arrived as head crowned and Inventory Representative was on floor immediately after but did not need to attend as baby was vigorous after delivery. [facility] Infant Transferred: Remains with Mother (after 2 minutes of delayed cord clamping while skin to skin on Diantha, baby cord was clamped X 2 and cut by Stafford, Mother of baby and baby was transferred to Stafford for skin to skin and bonding. ) Providers Nurse International Marketing Specialist: Nadine Liriano Nurse: Carito Xiong Nurse: Mitchell Guan Labor/Delivery Information Number of Babies in Womb: 1 Steroids Given: None Reason Steroids Not Administered: N/A Group Beta Strep: N/A Antibiotics Administered: No Rubella Status: Immune Blood Type: O+ Varicella Immunity: Immune Note: Diantha had strong, involuntary urge to push at 1130 this morning after misoprostol induction for unstable lie that had spontaneously changed to Cephalic Second stage huddle was performed and patient pushed with excellent effort. After 1 and a half hours there was bulging on perineum but no caput and patient left tub for bed. VE showed thick anterior lip which Diantha could not tolerate being reduced and plan for pain management without pushing was made. Patient was fatigued but she and baby had excellent VS and FHR so decision to try to relax and allow cervix to thin was made. Epidural was placed at 1405. Shortly after epidural bolus was given and Diantha was relaxed, FHR deceleration to 80's was noted. FHR responded to tactile stim but then dropped again and Dr. Rockwell and Pediatrics were called to attend. Patient's cervical lip was thin and easily reduced and with amazing pushing effort she was able to bring baby to with steady progression to delivered. Live female delivered DILMA over intact perineum at 1445. Baby was placed on Diantha per previous plan for skin to skin until cord was doulble clamped and cut by Stafford, Mother of baby after 2 minutes and baby was the transferred to skin to skin with Stafford. Diantha then progressed to pushing placenta out without difficulty. Fundus firmed to U with massage. EBL 350cc. Perineum and vagina inspected and was intact. Expect normal PP course for Diantha will probable discharge to home in am. Baby will be cared for by it's mother, Georgette. + bonding noted. Baby did have a loose nuchal cord times 1 reduced after head delivered. scores 8/9. Weight 8lb 0.9oz. Stages of Labor Onset of Labor Date: 05/15/22 Onset of Labor Time: 18:30 Complete Dilatation Date: 05/16/22 Complete Dilatation Time: 11:30 Labor - Stage 1 Duration: 17 hours and 0 minutes ROM Baby A: 05/16/22 ROM Baby A: 08:45 Infant Delivery Date-Baby A: 05/16/22 Infant Delivery Time-Baby A: 14:45 Labor Stage 2 Duration: 3 hours and 15 minutes Placenta Delivery Date-Baby A: 05/16/22 Placenta Delivery Time-Baby A: 14:51 Labor-Stage 3 Duration: 6 minutes Total Length of Labor-Baby A: 20 hours and 15 minutes Placenta Status: Delivered
[2022-05-16] MEDS: Ibuprofen 600 MG TAB PO (19:24)
[2022-05-16] MEDS: Lactated Ringers 1,000 ML 200 ML IV (19:49)
[2022-05-16] MEDS: Oxytocin/Normal Saline 30 UNIT/500 ML BAG 95 UNITS IV (19:52)
[2022-05-17] MEDS: Ibuprofen 600 MG TAB PO (04:38)
--- NOTE | 2022-05-17 07:30 | W.PM.OBDISCH ---
Date of service: 05/17/22 Time of Service: 07:30 DS: Diagnosis Discharge Diagnosis (1) care following vaginal delivery: Status: Acute Asessment and Plan: 1. PP warning signs reviewed. Patient denies need for medications 2. Will be seen at 2 and 6 weeks PP 3. Considering some form of permanent sterilization for herself or her . 4. Normal PP course, is supplying breast milk by pumping for Georgette Rodriguez who is Mother of the baby that Zhang was gestational carrier for. I reviewed signs of mastitis and what to call for. Discharge Plan Disposition Patient Disposition: Home Condition: Good Discharge Details Reason For Visit: Unstable Lie Full Term Admit Date/Time: 05/15/22 20:15 Admit Provider: Nadnie Liriano Attending Provider: Nadine Liriano Primary Care Provider: Georgette Kaufman Hospital Course Hospital Course: Zhang was gestational carrier for Georgette Rodriguez and after induction of labor due to recent unstable lie of fetus she delivered a live female over intact perineum without complications. She will be seen at 2 and 6 weeks PP. She is pumping breast milk for Georgette's baby without difficulty. She and her are planning some form of permanent sterilization for contraception but have not decided. Home Meds and New Rx's Prescriptions: Continued prenat.vits,priyank,ilr-jezt-mnesq Tablet 1 tab PO DAILY calcium carbonate 500 mg calcium (1,250 mg) tablet 500 mg PO Q6H PRN magnesium 250 mg tablet 500 mg PO DAILY riboflavin (vitamin B2) 100 mg tablet 200 mg PO DAILY Discontinued aspirin [Adult Aspirin Regimen] 81 mg tablet,delayed release (DR/EC) 81 mg PO DAILY Patient Comments: 12/26/21- pt reports alternating 81 mg with 162 mg every other day. Discharge Instructions Stand Alone Forms: BC Post Vaginal Deliver Activity:: Activity as Tolerated Equipment/Supplies:: No Equipment Needed Diet:: As Tolerated Discharge Orders Discharge Orders: Discharge Order (Routine); Ordered 05/17/22 Ordered By: Nadine Liriano OB:DS Summary Summary Vaginal Delivery Method: Spontaneaous Episiotomy Description: None Laceration Extension: N/A complications OB DS: none Contraception Discussed Contraception Discussed: Yes (probable permanent sterilization for herself or her ), [place] Infant Gender-Baby A: Female weight: 8 lb 0.75 oz Disposition of Baby A: Other (will go home with her Mother, Georgette Rodriguez, who Diantha was gestational carrier for) Status at Discharge Functional status at discharge: independent ambulation Overall status at discharge: patient is back to baseline Mental Status: mental status grossly normal Speech and Movement: speech and movement normal Mood: congruent mood Affect: normal affect Time Spent with Patient providing and/or coordinating discharge services: Less than 30 minutes Exam Physical Exam Vital signs: Temp Pulse Resp BP Pulse Ox 98.3 F 113 H 18 120/80 100 05/16/22 23:00 05/16/22 23:00 05/16/22 23:00 05/16/22 23:00 05/16/22 23:00 Vital Signs Reviewed: Yes Constitutional Constitutional: no acute distress, average body habitus and cooperative HEENT Exam HEENT Exam: Normal Neck Exam Neck Exam: Normal (normal visual inspection) Breast Exam normal: Breast Exam: Normal Nipple Exam: Normal Respiratory Exam Respiratory Exam: Normal Cardiovascular Exam Cardiovascular Exam: Normal Abdominal Exam Abdomen: Other (normal exam) Fundal Exam Fundus: Below Umbilicus and Firm Comment: small lochia noted. KH Rectal Exam Rectal Exam: Normal Exam Perineum: Intact and Normal Extremities Exam Extremity Exam: Normal (denies calf tenderness) and Full ROM Back/Spine/Pelvis Exam Back Exam: Normal Skin Exam Skin Exam: Normal Neurological Exam Neurological Exam: Normal Psychiatric Exam Psychiatric Exam: Normal PFSH All Active Problems (Updated 05/16/22 @ 19:45 by Nadine Liriano CNM) care following vaginal delivery (Acute) Allergy history, penicillin (Acute) Medical History (Updated 05/16/22 @ 19:45 by Nadine Liriano CNM) COVID-19 affecting in second trimester COVID+ at 13 wks, mild sx Encounter for induction of labor Encounter for screening for other viral diseases Evaluate position using ultrasound Fatigue Mastitis conceived through in vitro fertilization state, gestational carrier Transverse lie of fetus Unstable lie Surgical History right foot surgery in high school Social History Smoking/Tobacco Use Status: Never Smoking risk assessment performed?: Yes Alcohol Intake: former Drug use: Never Substance use type: does not use Do you feel safe at home: Yes Do you feel safe in your relationship?: Yes History History 7 Para 2 Hx # Term Pregnancies 2 Multiple births 0 Hx # Pregnancies 0 Ectopic pregnancies 0 AB induced 0 Hx Number of Living Children 2 AB spontaneous 4 Past Pregnancies Del. Date GA/Weeks # Preg Succ Route Wgt Sex Labor Lgth Anesthesia Location [facility] 12/07/14 40 No Yes vaginal 7 lb 14 oz Female 8 hr [facility] 06/10/17 40 No Yes vaginal 9 lb 2 oz Male 5 hrs [facility] Odalys Wong CNM Delivery Date: 12/07/14 Last Updated by: Corie Farrell Used hypnobirthing, nml , CNM attended [facility] Delivery Date: 06/10/17 Last Updated by: Corie Farrell Waterbirth, no problems, Pablo DS: Data Vitals/I&O Vitals and I&O: Vital Signs Temperature 98.3 F 05/16/22 23:00 Pulse 113 H 05/16/22 23:00 Pulse Rhythm Regular 05/16/22 23:00 Respiratory Rate 18 05/16/22 23:00 Respiratory Depth Normal 05/16/22 23:00 Blood Pressure 120/80 05/16/22 23:00 Blood Pressure Mean 93 05/16/22 23:00 Pulse Oximetry 100 05/16/22 23:00 Oxygen Delivery Method Room Air 05/15/22 20:46 Oxygen Flow Rate 0 05/15/22 20:46 Pain Level 2 05/17/22 05:38 Intake & Output 05/16/22 05/16/22 05/17/22 11:59 23:59 11:59 Output Total 3100 / 3100 Balance -3100 / -3100 Weight 199 lb 199 lb Output: Urine 3100 / 3100 Other: Urine Color Pale Pale
[2022-05-17 08:15] VITALS: BP 117/74; PULSE 71; RESP 18; TEMP 36.6; O2SAT 99
== END 2022-05-17 10:20 | disposition home or self-care (01) | DRG 807 ==
LOC: BCD 20:21 → OBS 20:23
PROVIDERS: Admitting Provider Advanced Practice Midwife; PCP Internal Medicine; Visit Provider Advanced Practice Midwife
DX: O32.0XX0 Maternal care for unstable lie, not applicable or unspecified (principal); Z37.0 Single live birth; Z33.3 Pregnant state, gestational carrier; O69.81X0 Labor and delivery complicated by cord around neck, without compression, not applicable or unspecified; Z3A.40 40 weeks gestation of pregnancy
CPT/HCPCS: J3490

== ENCOUNTER 2022-06-26 12:12 | Outpatient (REF) | payer BC, SELFPAY ==
--- NOTE | 2022-06-26 11:40 | PAPFT_PTH ---
PATIENT: Zhang Granado LOC: [facility] U#:[id number] AGE/SX: 31/F ROOM: RE06/26/[address]: Nadine Liriano CNM : 1990 BED: DIS: 06/26/2022 SPEC #: [id number] RECD: 06/26/22 12:53 STATUS: TABATHA REQ #: [id number] ERIBERTO: 06/26/22 11:[address]: Nadine Liriano DEPT: [facility] Cytology RECD BY: Selina England ENTERED: 06/26/22 12:53 SP TYPE: PAPFT OTHR DR: Georgette Kaufman Tissues: 1 - CX/ENDOCX FOR PAP SMEARS Procedures: PAP THIN PREP/[facility] Screening HPV DNA PROBE Comments: [id number]
== END 2022-06-26 12:13 | disposition home or self-care (01) ==
LOC: LBN 12:12
PROVIDERS: PCP Internal Medicine; Visit Provider Advanced Practice Midwife
DX: Z12.4 Encounter for screening for malignant neoplasm of cervix (principal); Z11.51 Encounter for screening for human papillomavirus (HPV)
CPT/HCPCS: 88142; 87624